=== PATIENT | female | born 1960 | race Caucasian/White ===

== ENCOUNTER 2019-06-13 01:29 | Outpatient (CLI) | payer BC, SELFPAY ==
--- NOTE | 2019-06-13 14:32 | DI.CTLCSR_ITS ---
EXAM: CT CHEST LUNG CANCER SCREEN CLINICAL HISTORY: SCREENING LUNG CANCER, Z12.2. TECHNIQUE: Imaging protocol: Axial computed tomography images were obtained and coronal and sagittal reformatted images were created and reviewed. COMPARISON: No exams were available for comparison FINDINGS: Tracheobronchial tree: Patent where visualized. Mediastinum and Maddie: No dominant adenopathy or fluid collection. Pulmonary parenchyma: No consolidation or dominant measurable mass. No architectural distortion. Pleura: No effusion or pneumothorax. Heart: The heart is not dilated. No coronary artery calcifications are seen. No pericardial effusion. Aorta: Atherosclerosis. No aneurysmal dilatation. Upper abdomen: Unremarkable. Lymph nodes: Within normal limits. Bones:Degenerative changes. IMPRESSION: 1. No pulmonary nodules. 2. Lung RADS Cat 1 - Negative: No nodules and definitely benign nodules DATA REPOSITORY: All CT scans at this facility are submitted to the National Radiology Data Registry (NRDR) Dose Index Registry (DIR) with the [employer] ([employer]). RADIATION OPTIMIZATION: All CT scans at this facility use at least one of these dose optimization te chniques: automated exposure control; mA and/or kV adjustment per patient size (includes targeted exa ms where dose is matched to clinical indication); or iterative reconstruction.
== END 2019-06-13 01:49 ==
PROVIDERS: PCP Family Medicine; Visit Provider Family Medicine
DX: Z12.2 Encounter for screening for malignant neoplasm of respiratory organs (principal)
CPT/HCPCS: G0297